=== PATIENT | female | born 1960 | race Two or more races ===

== ENCOUNTER 2019-01-13 14:56 | Emergency (ER) | payer OTHER ==
[~2019-01-13] VITALS: Ht 157.5 cm; Wt 113.4 kg
[2019-01-13] MEDS ORDERED: SYNTHROID75 MCG (15:14)
[2019-01-13] MEDS ORDERED: COZAAR25 MG (15:14)
== END 2019-01-13 20:00 | disposition home or self-care (01) ==
LOC: ER 14:56
DX: R60.0 Localized edema (principal); I82.593 Chronic embolism and thrombosis of other specified deep vein of lower extremity, bilateral